=== PATIENT | female | born 1990 | race American Indian/Alaskan Native ===

== ENCOUNTER 2018-08-11 02:30 | Inpatient (IN) | payer MEDICAID ==
[2018-08-11] MEDS ORDERED: AMPICILLIN/NS 2 GM/100 ML 2 GM/100 ML BAG IV ONE (04:11)
[2018-08-11] MEDS ORDERED: STADOL IV PRN (04:13)
[2018-08-11] MEDS ORDERED: LACTATED RINGERS 1,000 ML IV ONE (04:16)
[2018-08-11 04:59] LABS: Hematocrit 28.3 % (30.3-42.9); Hemoglobin 8.7 gm/dl (10.1-14.3); Mean Corpuscular HGB Conc 31 % (30-34); Mean Corpuscular Volume 71 fl (79-97); Platelet Count 242 K/mm3 (140-440); Red Blood Count 3.97 M/mm3 (3.65-5.03); Red Cell Distribution Width 18.1 % (13.2-15.2)
[2018-08-11 05:03] LABS: Bilirubin,Urine NEG (Negative); Blood,Urine SM (Negative); Color,Urine Yellow (Yellow); Mucus,Urine FEW /HPF; Protein,Urine <15 mg/dL mg/dL (Negative)
[2018-08-11] MEDS ORDERED: PITOCin/NS 20 UNIT/1000ML DRIP 20,000 MILLIUNITS/1,000 ML BAG IV ONE (05:08)
[2018-08-11 05:10] LABS: Amphetamine Screen,Urine PRESUMPTIVE NEGATIVE; Benzodiazepines Screen,Urine PRESUMPTIVE NEGATIVE; Cannabinoid Screen,Urine PRESUMPTIVE NEGATIVE; Methadone Screen,Urine PRESUMPTIVE NEGATIVE; Opiate Screen,Urine PRESUMPTIVE NEGATIVE
[2018-08-11 05:25] LABS: Cocaine Screen,Urine PRESUMPTIVE POSITIVE
[2018-08-11] MEDS: PITOCin/NS 20 UNIT/1000ML DRIP 20 UNITS/1,000 ML BAG IV SCH ×2 (05:25→06:55)
[2018-08-11 05:27] LABS: Alanine Aminotransferase 10 units/L (7-56)
--- NOTE | 2018-08-11 05:32 | History and Physical Report ---
History of Present Illness Date of examination: 08/11/18 Date of admission: 08/11/18 04:01 Chief complaint: contractions History of present illness: This is a 28 and EDC 24 Jul at 39+3 weeks came to triage for contraction. Noted to be 4cm and vangie admitted for labor. GBS unknown. 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 denies: smoking, alcohol abuse, prescription drug abuse - Obstetrical History Expected Date of Delivery: 08/15/18 Actual Gestation: 39 Week(s) 3 Day(s) : 6 Para: 5 Hx # Term Pregnancies: 5 Number of Pregnancies: 0 Spontaneous Abortions: 0 Induced : 0 Number of Living Children: 5 Medications and Allergies Allergies Allergy/AdvReac Type Severity Reaction Status Date / Time No Known Allergies Allergy Verified 03/01/13 06:48 Home Medications Medication Instructions Recorded Confirmed Last Taken Type Ferrous Fumarate/Docusate(Nf) 1 each PO BID #60 tablet.er 01/12/14 Unknown Rx [Suleman-Sequels 106/50 mg tab] Active Meds: Active Medications Butorphanol Tartrate (Stadol) 2 mg IV Q2H PRN PRN Reason: Labor Pain Review of Systems All systems: negative Genitourinary: contractions - Vital Signs Vital signs: Vital Signs Pulse Pulse Ox 113 H 99 08/11/18 02:40 08/11/18 02:40 Temp Pulse Resp BP Pulse Ox 98.2 F 102 H 24 116/64 97 08/11/18 04:54 08/11/18 05:19 08/11/18 04:54 08/11/18 05:19 08/11/18 03:15 - Physical Exam Breasts: Positive: normal Cardiovascular: Regular rate, Normal S1 Abdomen: Positive: normal appearance, soft, normal bowel sounds. Negative: distention, tenderness, guarding Genitourinary (Female): Positive: normal external genitalia, normal perenium Vagina: Positive: normal moisture Uterus: Positive: normal size Anus/Rectum: Positive: normal perianal skin Extremities: Positive: normal Deep Tendon Reflex Grade: Normal +2 - Obstetrical FHR: category 1 Results Result Diagrams: 08/11/18 04:30 08/11/18 04:30 Abnormal lab results 08/11/18 08/11/18 Range/Units 04:30 04:30 WBC 15.0 H (4.5-11.0) K/mm3 Hgb 8.7 L (10.1-14.3) gm/dl Hct 28.3 L (30.3-42.9) % MCV 71 L (79-97) fl MCH 22 L (28-32) pg RDW 18.1 H (13.2-15.2) % Creatinine 0.4 L (0.7-1.2) mg/dL Uric Acid 3.0 L (3.5-7.6) mg/dL Lactate Dehydrogenase 238 H (91-180) units/L All other labs normal. Assessment and Plan A/P IUP 39+3 weeks walkin with no care unknonw GBS Labor offer epidural IVF, labs pain meds po expect vaginal delivery
--- NOTE | 2018-08-11 05:43 | Procedure Note ---
OB Delivery Note - Delivery Date of Delivery: 08/11/18 Surgeon: ILA JETT Estimated blood loss: other (250cc) - Vaginal Delivery presentation: vertex Delivery position: OA Intrapartum events: no care Delivery induction: none Delivery monitor: external FHT, external uterine Route of delivery: Delivery placenta: spontaneous Delivery cord: nuchal cord, 3 umbilical vessels Episiotomy: none Delivery laceration: none Anesthesia: none Delivery comments: Patient was noted to c/c/ +1 and commenced to pushing a viable male infant at 0514. The baby delivered after a loose nuchal cord reduced with easily delivery. The placenta delivered intact with 3 vessel cord at 0523. At this time noticed several clots prior to delivery of placenta. The apgars were 8 and 9. Weight of baby 5 pounds 11 oz. No lacs noted. patient tolerated procedure well. Of note patient tested positive for cocaine. - Infant A at 1 minute: 8 at 5 minutes: 9 Infant Gender: Male
[2018-08-11] MEDS ORDERED: TUCKS PAD TP PRN (05:44)
[2018-08-11] MEDS ORDERED: DULCOLAX PR PRN (05:44)
[2018-08-11] MEDS ORDERED: PERCOCET 5/325 PO PRN (05:44)
[2018-08-11] MEDS ORDERED: ZOFRAN IV PRN (05:44)
[2018-08-11] MEDS ORDERED: MILK OF MAGNESIA PO PRN (05:44)
[2018-08-11] MEDS ORDERED: PHENERGAN PO PRN (05:44)
[2018-08-11] MEDS ORDERED: NORCO 5/325 PO PRN (05:44)
[2018-08-11] MEDS ORDERED: LANSINOH TP PRN (05:44)
[2018-08-11] MEDS ORDERED: BENADRYL PO PRN (05:44)
[2018-08-11] MEDS ORDERED: PHENERGAN PR PRN (05:44)
[2018-08-11] MEDS ORDERED: TYLENOL PO PRN (05:44)
[2018-08-11] MEDS ORDERED: SODIUM CHLORIDE FLUSH SYRINGE 10 ML IV PRN (06:00)
[2018-08-11] MEDS: IBUPROFEN PO SCH ×4 (06:54→23:12)
[2018-08-11 07:06] LABS: Hepatitis C Virus Antibody Non-Reactive (NonReactive)
[2018-08-11] MEDS: PRENATAL VITAMIN PO SCH (09:29)
[2018-08-11] MEDS: COLACE PO SCH ×2 (12:03→21:07)
[2018-08-11 18:12] LABS: Hematocrit 28.9 % (30.3-42.9); Hemoglobin 8.5 gm/dl (10.1-14.3)
[2018-08-11] MEDS: SENOKOT S PO SCH (21:44)
[2018-08-12] MEDS: IBUPROFEN PO SCH ×2 (05:14→17:34)
[2018-08-12] MEDS ORDERED: M-M-R II VACCINE SUB-Q ONE (05:44)
[2018-08-12] MEDS ORDERED: BOOSTRIX IM ONE (06:00)
--- NOTE | 2018-08-12 07:27 | Progress Note ---
Assessment and Plan - Patient Problems (1) Insufficient care Current Visit: Yes Status: Acute Plan to address problem: routine care Subjective - Subjective Date of service: 08/12/18 Interval history: Patient without complaints. GBS status unknown therefore will monitor infant for 48 hours Patient reports: appetite normal, voiding normally, pain well controlled [place]: doing well Objective - Vital Signs Latest vital signs: Vital Signs Temp Pulse Resp BP BP Pulse Ox 08/12/18 00:58 98.2 F 87 18 128/81 96 08/11/18 18:28 84 08/11/18 15:34 97.5 F L 104 H 18 142/86 97 08/11/18 12:17 98.4 F 95 H 18 125/62 95 08/11/18 07:45 98.6 F 85 18 124/70 Intake and Output 08/11/18 08/12/18 08/12/18 22:59 06:59 14:59 Intake Total 720 Balance 720 Intake: Oral 360 Intake, Free Water 360 Other: Total, Intake Amount 360 # Voids Void 1 - Exam Abdomen: Present: normal appearance Uterus: Present: normal - Labs Labs: Abnormal lab results 08/11/18 Range/Units 17:38 Hgb 8.5 L (10.1-14.3) gm/dl Hct 28.9 L (30.3-42.9) %
--- NOTE | 2018-08-12 07:30 | Discharge Summary ---
Providers - Providers Date of Admission: 08/11/18 04:01 Date of discharge: 08/13/18 Attending physician: ILA JETT MD 08/11/18 06:04 Consult to Case Management [CONS] Urgent Services Needed at Discharge: [employer] Notified:: case mgt Was contact made?: No Additional Physician Instructions: [place] patient + cocaine , delivered 08/11 Primary care physician: ILA JETT MD Hospitalization Reason for admission: active labor Delivery: Discharge diagnosis: IUP at term delivered Hospital course: Patient admitted in active labor without any care. She had a . The patient and were positive for cocaine. Her GBS status is unknown. Patient will be evaluated by social work. Condition at discharge: Good Disposition: DC-01 TO HOME OR SELFCARE - Discharge Diagnoses (1) Insufficient care Status: Acute Plan - Discharge Medications Prescriptions: Ibuprofen [Motrin] 600 mg PO Q8H PRN #30 tablet PRN Reason: Pain - Provider Discharge Summary Activity: no sex for 6 weeks, no heavy lifting 4 weeks, no strenuous exercise Diet: routine Instructions: routine Additional instructions: [] Smoking cessation referral if applicable(refer to patient education folder for contact #) [] Refer to [facility] Booklet Call your doctor immediately for: * Fever > 100.5 * Heavy vaginal bleeding ( >1 pad per hour) * Severe persistent headache * Shortness of breath * Reddened, hot, painful area to leg or breast * schedule visit in 4 weeks - Follow up plan
[2018-08-12] MEDS: COLACE PO SCH (09:56)
[2018-08-12] MEDS: PRENATAL VITAMIN PO SCH (09:56)
[2018-08-13] MEDS: COLACE PO SCH ×2 (00:10→09:20)
[2018-08-13] MEDS: IBUPROFEN PO SCH ×3 (00:11→11:44)
[2018-08-13] MEDS: PRENATAL VITAMIN PO SCH (09:20)
[2018-08-13] MEDS: SENOKOT S PO SCH (12:06)
[2018-08-13 17:02] VITALS: BP 139/72
== END 2018-08-13 17:00 | disposition home or self-care (01) | DRG 775 ==
LOC: TRG 02:30 → LD 04:01 → OB 07:36
PROVIDERS: ADMIT Obstetrics & Gynecology; ATTEND Obstetrics & Gynecology
PROC: 10E0XZZ Delivery of Products of Conception, External Approach (ICD-10-PCS; principal; 2018-08-11)
PROC: 3E0234Z Introduction of Serum, Toxoid and Vaccine into Muscle, Percutaneous Approach (ICD-10-PCS; 2018-08-12)
DX: O69.81X0 Labor and delivery complicated by cord around neck, without compression, not applicable or unspecified (principal); F14.90 Cocaine use, unspecified, uncomplicated; O99.324 Drug use complicating childbirth; Z3A.39 39 weeks gestation of pregnancy; Z37.0 Single live birth; Z23 Encounter for immunization
CPT/HCPCS: 36415; 80307; 81001; 82565; 83615; 84450; 84460; 84550; 85014; 85018; 85027; 85660; 86592; 86706; 86762; 86803; 86850; 86900; 86901; 87806; 88307; 90471; 90707; 90715; G0378; J0290; J2590; J7120